=== PATIENT | male | born 1990 | race Hispanic/Latino ===

== ENCOUNTER 2020-07-28 10:11 | Day surgery (SDC) | payer BC ==
[2020-07-28] MEDS ORDERED: Fentanyl 100 MCG/2 ML VIAL ONE ×3 (10:35→15:02)
[2020-07-28] MEDS ORDERED: Sodium Chloride 0.9% 100 ML ONE (12:51)
[2020-07-28] MEDS ORDERED: Piperacillin/Tazobactam 3.375 GM VIAL ONE (12:51)
[2020-07-28] MEDS ORDERED: Midazolam HCl 2 mg/2 ml Vial ONE (12:53)
[2020-07-28] MEDS ORDERED: Bupivacaine 0.25% HCL 30 ML VIAL ONE (14:36)
[2020-07-28] MEDS ORDERED: EPINEPHrine 1 MG/ML AMP ONE (14:36)
[2020-07-28] MEDS ORDERED: Lidocaine 1% w/Epinephrine 1:100K 20 ML VIAL ONE (14:36)
[2020-07-28] MEDS ORDERED: Succinylcholine 200 MG/10 ml SYRINGE FS ONE (15:23)
[2020-07-28] MEDS ORDERED: PROPOFOL 200 MG/20 ML VIAL ONE (15:23)
[2020-07-28] MEDS ORDERED: Dexamethasone 20 MG/5 ML VIAL ONE (15:23)
[2020-07-28] MEDS ORDERED: Rocuronium Bromide 10 MG/ML (10ML VIAL) ONE (15:23)
[2020-07-28] MEDS ORDERED: Ondansetron PF 4 MG/2 ML Vial ONE (15:23)
[2020-07-28] MEDS ORDERED: Glycopyrrolate 0.2 MG/ML 5 ML SYRINGE ONE (15:23)
[2020-07-28] MEDS ORDERED: Lidocaine 1% PF 5 ML VIAL ONE (15:23)
[2020-07-28] MEDS ORDERED: SUGAMMADEX SODIUM 200 MG/2 ML VIAL ONE (16:09)
[2020-07-28] MEDS ORDERED: Promethazine HCl 25 MG/ML VIAL ONE (16:13)
[2020-07-28] MEDS ORDERED: Meperidine HCl/PF 25 MG/ML VIAL ONE (16:20)
== END 2020-07-28 18:35 | disposition home or self-care (01) ==
LOC: SDC 10:11
PROVIDERS: ATTEND Surgery
PROC: 0DTJ4ZZ Resection of Appendix, Percutaneous Endoscopic Approach (ICD-10-PCS; principal; 2020-07-28)
DX: K35.80 Unspecified acute appendicitis (principal)
CPT/HCPCS: 88304; J0171; J1100; J2175; J2250; J2405; J2543; J2550; J2704; J3010; J3490; S0020